=== PATIENT | male | born 2000 | race Caucasian/White ===

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

== ENCOUNTER 2022-06-23 13:51 | Emergency (ER) | payer BC, MEDICAID, SELFPAY ==
[2022-06-23 14:01] VITALS: BP 151/88; PULSE 68; RESP 15; TEMP 36.7; O2SAT 95; BMI 28.7
--- NOTE | 2022-06-23 14:06 | W.ED.GENADLT ---
HPI - General Adult General: Chief complaint: Nausea/Vomiting/Diarrhea Stated complaint: N/V; NEAR SYNCOPE Time Seen by Provider: 06/23/22 14:01 History of Present Illness: 21-year-old male presenting today with nausea and vomiting. Patient notes he was eating a bologna sandwich. When he vomited immediately afterwards. Vomitus x1. With some continued nausea. No associated diarrhea. No chest pain or shortness of breath. Patient notes while vomiting he felt like he was going to pass out. This is now resolved. No family history of sudden cardiac . No fevers or chills. He has no other complaints at this time. Review of Systems General: Reports: 10 or more systems reviewed and unremarkable except in HPI and below Physical Exam Const: COMMON NORMALS: no acute distress, patient oriented x3 and alert GENERAL APPEARANCE: cooperative ORIENTATION/CONSCIOUSNESS: Yes awake, Yes oriented to person, Yes oriented to place and Yes oriented to time HENMT: COMMON NORMALS: normocephalic, atraumatic, external ears normal, Normal external nose present and moist oral mucous membranes HEAD & SCALP: normal to inspection, normocephalic and atraumatic NOSE: Normal external nose present GENERAL EAR: hearing grossly impaired EXTERNAL EAR: Yes external ears normal Eye: COMMON NORMALS: Equal, round and reactive pupils present, EOMs intact bilaterally, conjunctivae normal and no scleral icterus GENERAL EYE: appearance normal, both eyes and all related structures EYELID: eyelids normal CONJUNCTIVA: Yes conjunctivae normal SCLERA: sclerae normal PUPIL: Yes Equal, round and reactive pupils present Neck/C-Spine: COMMON NORMALS: full ROM, supple and no JVD GENERAL: Yes normal visual inspection Lymph: LYMPHATIC: no lymphadenopathy noted and no lymphedema noted Chest: COMMONS NORMALS: normal inspection of the chest Resp: COMMON NORMALS: normal respiratory effort, No retractions and No use of accessory muscles Cardio: COMMON NORMALS: no JVD, regular rate and regular rhythm RATE: regular rate RHYTHM: regular rhythm GI: COMMON NORMALS: Normal to inspection, nondistended, normoactive bowel sounds present : COMMON NORMALS: Yes no CVA tenderness BLADDER/KIDNEY EXAM: Yes no CVA tenderness Back/Pelvis: COMMON NORMALS: no CVA tenderness and thoracic and lumbar spine normal to inspection Extremity: COMMON NORMALS: normal to inspection, full ROM and capillary refill normal GENERAL: Yes normal exam except as noted Neuro: COMMON NORMALS: patient oriented x3, CN's II-XII intact bilaterally, moves all extremities, no focal motor deficits, no sensory deficits noted and gait normal SENSORIUM/ORIENTATION: Yes alert, Yes oriented to person, Yes oriented to place and Yes oriented to time Psych: COMMON NORMALS: mental status grossly normal, Normal thought process present, cooperative and normal affect THOUGHT PROCESS: Normal thought process present Skin: COMMON NORMALS: no rashes or lesions noted and no wounds GENERAL SKIN EXAM: no rashes or lesions noted Course Vital Signs: Vital signs: Vital Signs Temperature 98.0 F 06/23/22 14:01 Pulse Rate 80 06/23/22 14:32 Respiratory Rate 15 06/23/22 14:32 Blood Pressure 151/99 06/23/22 14:32 Pulse Oximetry 99 06/23/22 14:32 Oxygen Delivery Me thod 06/23/22 14:01 MDM - General Adult Medical Decision Making 21-year-old male presenting today with nausea and vomiting. Vitals within normal limits. Abdominal exam was benign and not suggestive of life-threatening pathology. Patient was given Zofran with resolution and vomiting. Will give Zofran for home. EKG is unremarkable. Low suspicion for life-threatening causes of syncope. Patient was given strict return precautions and recommended routine outpatient follow-up. 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
--- NOTE | 2022-06-23 14:15 | ECG_ITS ---
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 Measurements Intervals [place] Rate: 70 P: 56 [place]: 165 QRS: 43 QRSD: 104 T: 52 QT: 379 QTc: 410 Interpretive Statements SINUS RHYTHM WITH MARKED SINUS ARRHYTHMIA No previous ECG available for comparison Electronically Signed On 06-23-2022 21:45:42 CDT by Stephanie Eng M.D. [email or web address]
[2022-06-23 14:32] VITALS: BP 151/99; PULSE 80; RESP 15; O2SAT 99
== END 2022-06-23 14:33 | disposition home or self-care (01) ==
PROVIDERS: Emergency Provider Emergency Medicine
DX: R11.2 Nausea with vomiting, unspecified (principal)
CPT/HCPCS: 93005; 99283

== ENCOUNTER 2024-04-04 20:56 | Emergency (ER) | payer SELFPAY ==
[2024-04-04 20:59] VITALS: BP 150/81; PULSE 113; RESP 17; TEMP 37.4; O2SAT 96; BMI 32.5
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
[2024-04-04 21:15] VITALS: BP 142/75; PULSE 100; RESP 16; O2SAT 94
[2024-04-04 21:32] VITALS: BP 142/75; PULSE 100; RESP 16; TEMP 37.4; O2SAT 94
== END 2024-04-04 21:33 | disposition home or self-care (01) ==
PROVIDERS: Emergency Provider Nurse Practitioner Family
DX: S01.412A Laceration without foreign body of left cheek and temporomandibular area, initial encounter (principal); Y00.XXXA Assault by blunt object, initial encounter
CPT/HCPCS: 12011; 99282